=== PATIENT | female | born 1945 | race African-American/Black ===

== ENCOUNTER 2019-08-18 05:50 | Day surgery (SDC) | payer MEDICARE ==
[2019-08-15 10:41] VITALS: BMI 27.4
--- NOTE | 2019-08-15 10:46 | HP ---
HISTORY OF PRESENT ILLNESS: Ms. Bermudez is a 74-year-old female, who reports to our office for evaluation of cervical cord compression with right-sided radiculopathy with myelopathy. The patient reports that she has been having neck pain, "popping and clicking" for some time. She complains of pain below her shoulder blades, clumsy and numbness in her hands. She states that she drops things with the right hand and that her balance is not what it used to be. The patient denies physical therapy or injections for her cervical spine. She has done both for her lumbar. The patient shows some weakness in the right triceps and finger extensions. REVIEW OF SYSTEMS: A 10-point review of systems has been completed and is negative other than stated in the above HPI. PAST MEDICAL HISTORY: Solitary pulmonary nodule, COPD, obstructive sleep apnea, arthritis, aortic valve replacement, lung cancer, hypertension, gout, heart disease, and diabetes. SURGICAL HISTORY: Lung cancer in 2017, bypass and valve replacement in 2014. FAMILY HISTORY: Father was , diagnosed with cancer. Mother was , diagnosed with hypertension and mental illness. SOCIAL HISTORY: The patient is a nonsmoker. MEDICATIONS: 1. Advair Diskus. 2. Allopurinol. 3. Atenolol. 4. Atorvastatin. 5. Clopidogrel. 6. Furosemide. 7. Gabapentin. 8. Metformin. 9. Nitroglycerin. 10. ProAir HFA. 11. Tylenol No. 3. 12. Valsartan and hydrochlorothiazide. 13. Aspirin. 14. Vitamin D. 15. Uses CPAP. ALLERGIES: NO KNOWN DRUG ALLERGIES. PHYSICAL EXAMINATION: CONSTITUTIONAL: The patient is alert and oriented x3. She appears nontoxic. RESPIRATIONS: Normal work of breathing on room air. NECK: Soft and supple. No masses are noted. Range of motion is intact and nonpainful. NEUROLOGIC: Awake, alert, and oriented x3. Memory, attention, fund of knowledge are normal. Cranial nerves grossly intact. Upper extremities, 5/5 strength in deltoids, biceps, wrist extension, finger extension. Right, 4/5 in triceps and finger extension. Sensation is equal bilaterally. Reflexes are symmetric. Spurling's negative. Tandem walk acceptable. IMAGING: MRI cervical shows severe stenosis at C6-C7. ASSESSMENT AND PLAN: Cervical spinal stenosis with radiculopathy and myelopathy. Dr. Duran has offered surgery, ACDF at C6-C7. I discussed the indications, risks, benefits, alternatives, expected results from surgery. The risks discussed included, but were not limited to, bleeding, infection, CSF leak, nerve damage, weakness, swallowing trouble, feeding tube placement, tracheal injury, esophageal injury, vocal cord injury, spinal cord injury, incontinence, paralysis, ventilator dependence, wheelchair dependence, stroke, loss of vision, carotid artery injury, jugular vein injury, hardware misplacement, cardiopulmonary complications of anesthesia, or . Long-term complications discussed included, but were not limited to hardware failure and degradation of surrounding disks. She states that she understands the risks and is willing to proceed with surgery. Job ID: [id number]
[2019-08-18] MEDS ORDERED: Sodium Chloride 0.9% 10 ML ONE (06:19)
[2019-08-18] MEDS ORDERED: Thrombin 5000 UNITS/5 ML VIAL ONE (06:19)
[2019-08-18 06:47] LABS: #Basophils 0.1 thou/uL (0.0-0.2); #Eosinphils 0.1 thou/uL (0.0-0.7); #Lymphocytes 1.5 thou/uL (1.20-3.40); #Monocytes 0.6 thou/uL (0.11-0.59); #Neutrophils 5.2 thou/uL (1.40-6.50); %Basophils 0.9 % (0.0-1.0); %Eosinophils 1.4 % (0.0-10.0); %Lymphocytes 20.1 % (21.0-51.0); %Monocytes 8.2 % (0.0-10.0); %Neutrophils 69.4 % (42.0-75.0); Hemoglobin 10.9 g/dL (12.0-16.0); Mean Corpuscular HGB CONC 33.7 g/dL (32.0-36.0); Mean Corpuscular Hemoglobin 29.7 pg (27.0-31.0); Mean Corpuscular Volume 88.3 fL (78.0-98.0); Mean Platelet Volume 7.5 fL (7.4-10.4); Platelet Count 255 thou/uL (130-400); RBC Distribution Width 13.9 % (11.5-14.5); Red Blood Cell (RBC) Count 3.67 mill/uL (4.20-5.40); White Blood Cell (WBC) Count 7.5 thou/uL (4.8-10.8)
[2019-08-18 06:53] LABS: PTT 31.1 SEC (22.9-36.1); Prothrombin Time 12.7 SEC (12.0-14.7)
[2019-08-18] MEDS ORDERED: Fentanyl 100 MCG/2 ML VIAL ONE ×3 (06:58→10:57)
[2019-08-18] MEDS ORDERED: HYDROmorphone 2 MG/ML VIAL SLOW IVP PRN (10:04)
[2019-08-18] MEDS ORDERED: Ondansetron HCl/PF 4 MG/2 ML Vial IVP PRN (10:04)
[2019-08-18] MEDS ORDERED: PACU-Morphine 4MG/ML VIAL SLOW IVP PRN (10:04)
[2019-08-18] MEDS ORDERED: Morphine Sulfate 2 MG/ML SYRINGE SLOW IVP PRN (10:04)
[2019-08-18] MEDS ORDERED: Promethazine HCl 25 MG/ML VIAL IM PRN (10:04)
[2019-08-18] MEDS ORDERED: Promethazine HCl 25 MG/ML VIAL SLOW IVP PRN (10:04)
--- NOTE | 2019-08-18 11:14 | OP ---
DATE OF PROCEDURE: 08/18/2019 COST AND RISK ANALYSIS MANAGER: Ruby Osei PA-C PREOPERATIVE INDICATION: Treat pain and prevent neurological deterioration. PREOPERATIVE DIAGNOSIS: Cervical intervertebral disk disease at C6-C7 with cervical cord compression and myelopathy. POSTOPERATIVE DIAGNOSIS: Cervical intervertebral disk disease at C6-C7 with cervical cord compression and myelopathy. PROCEDURES PERFORMED: Anterior cervical diskectomy, intervertebral arthrodesis, placement of intervertebral biomechanical device, anterior cervical plating C6-C7, local morselized autograft, morselized allograft, operating microscope. PREOPERATIVE MEDICATION: Ancef 2 g IV. DRAIN NUMBER: Zero. DRAIN TYPE: None. DESCRIPTION OF PROCEDURE: The patient was brought to the operating room. General endotracheal anesthesia was induced. The patient was positioned supine on the operating table, keeping the neck in normal anatomic alignment. Her head was supported by a donut-shaped headrest. A lateral fluoro radiograph was used to plan our incision. The right side of the neck was sterilely prepped and draped, and we opened with a 10-blade knife. We controlled bleeding with bipolar cautery. We dissected sharply to the platysma and cut this muscle in line with our incision. We continued our dissection medial to the sternocleidomastoid and lateral to the trachea and esophagus. We arrived at the prevertebral space and placed a marker on the spine. A lateral fluoro radiograph confirmed the levels upon, which we were operating. There was one large vein preventing retraction, and this was ligated and then cut. We elevated the longus colli muscles off the anterior surface of C6 and C7, and placed a self-retaining retractor beneath them. Distraction pins were placed in C6 and C7. We distracted across the intervening interspace. We incised the interspace with a 15-blade knife and removed disk contents using curettes and rongeurs. As we approached the posterior longitudinal ligament, the operative microscope was brought into the field. Under microscopic navigation using microsurgical techniques, we removed the remainder of the intervertebral disk. We accessed the ventral epidural space with a microcurette, and then, we removed the posterior longitudinal ligament and posterior osteophytes from one neural foramen to the other until the entire dura was decompressed from nerve root to nerve root. We prepared the endplates for grafting with curettes. We measured the height of the interspace with a bone rasp to 7 mm. A 7 mm PEEK intervertebral graft was brought into the field. Bone removed during our decompression, it was carefully cleaned of soft tissue attachments, morselized and added into demineralized bone matrix as our fusion substrate. The substrate was packed into the intervertebral device. The substrate was advanced into the interspace under radiographic guidance to the appropriate depth. We then brought a 14 mm plate into the field. We drilled airplane pilot supervisor holes through the plate into the vertebral bodies at C6 and C7, and we affixed the plate using a fixed angle screws at C7 and variable angle screws at C6. We engaged the locking mechanism over each of the 4 screws. AP and lateral fluoro radiographs confirmed adequate position of our instrumentation. We irrigated with bacitracin irrigation. Hemostasis was excellent. We closed the wound in anatomical layers. We applied a sterile dressing. This was a clean case, no contamination. Job ID: [id number]
[2019-08-18] MEDS ORDERED: Rocuronium Bromide 10 MG/ML (10ML VIAL) ONE (12:44)
[2019-08-18] MEDS ORDERED: ePHEDrine 50 MG/ML VIAL ONE (12:44)
[2019-08-18] MEDS ORDERED: Metoclopramide HCl 10 MG/2 ML VIAL ONE (12:44)
[2019-08-18] MEDS ORDERED: Lidocaine 1% PF 5 ML VIAL ONE (12:44)
[2019-08-18] MEDS ORDERED: Dexamethasone 20 MG/5 ML VIAL ONE (12:44)
[2019-08-18] MEDS ORDERED: PROPOFOL 200 MG/20 ML VIAL ONE (12:44)
[2019-08-18] MEDS ORDERED: Ondansetron PF 4 MG/2 ML Vial ONE (12:44)
[2019-08-18] MEDS ORDERED: PHENYLEPHRINE-NS 100 MCG/ML 10 ML SYRINGE ONE (12:44)
[2019-08-18] MEDS ORDERED: Glycopyrrolate 0.2 MG/ML 5 ML SYRINGE ONE (12:44)
== END 2019-08-18 16:58 | disposition home or self-care (01) ==
LOC: SDC 05:50
PROVIDERS: ATTEND Neurological Surgery
PROC: 0RG20A0 Fusion of 2 or more Cervical Vertebral Joints with Interbody Fusion Device, Anterior Approach, Anterior Column, Open Approach (ICD-10-PCS; principal; 2019-08-18)
PROC: 0RG2071 Fusion of 2 or more Cervical Vertebral Joints with Autologous Tissue Substitute, Posterior Approach, Posterior Column, Open Approach (ICD-10-PCS; 2019-08-18)
PROC: 0RG1070 Fusion of Cervical Vertebral Joint with Autologous Tissue Substitute, Anterior Approach, Anterior Column, Open Approach (ICD-10-PCS; 2019-08-18)
PROC: 0RT30ZZ Resection of Cervical Vertebral Disc, Open Approach (ICD-10-PCS; 2019-08-18)
DX: M50.023 Cervical disc disorder at C6-C7 level with myelopathy (principal); M50.123 Cervical disc disorder at C6-C7 level with radiculopathy; M48.02 Spinal stenosis, cervical region; I10 Essential (primary) hypertension; E11.9 Type 2 diabetes mellitus without complications; J44.9 Chronic obstructive pulmonary disease, unspecified; G47.33 Obstructive sleep apnea (adult) (pediatric); Z79.82 Long term (current) use of aspirin; Z79.84 Long term (current) use of oral hypoglycemic drugs; Z79.899 Other long term (current) drug therapy; Z88.5 Allergy status to narcotic agent; Z88.8 Allergy status to other drugs, medicaments and biological substances; Z91.018 Allergy to other foods; Z95.1 Presence of aortocoronary bypass graft; Z95.4 Presence of other heart-valve replacement; Z99.89 Dependence on other enabling machines and devices
CPT/HCPCS: 20930; 20936; 22551; 22845; 22853; 76000; 85025; 85610; 85730; C1713; C1776; L0174; 36415; J0131; J0690; J1100; J2001; J2405; J2704; J2765; J3010; J3490